=== PATIENT | female | born 1985 | race Two or more races ===

== ENCOUNTER 2019-12-04 12:49 | Outpatient (CLI) | payer OTHER | END 2019-12-04 13:49 | disposition home or self-care (01) | LOC: OFIC 805 12:49 | PROVIDERS: ATTEND Otolaryngology | DX: J30.89 Other allergic rhinitis (principal); J34.89 Other specified disorders of nose and nasal sinuses; J34.2 Deviated nasal septum; R42 Dizziness and giddiness; H61.23 Impacted cerumen, bilateral ==

== ENCOUNTER 2020-01-15 12:07 | Outpatient (CLI) | payer OTHER | END 2020-01-15 13:00 | disposition home or self-care (01) | LOC: OFIC 805 12:07 | PROVIDERS: ATTEND Otolaryngology | DX: R42 Dizziness and giddiness (principal) ==

== ENCOUNTER → 2020-03-30 | Outpatient (CLI) | payer OTHER | END | disposition home or self-care (01) | LOC: OFIC 805 12:15 | PROVIDERS: ATTEND Otolaryngology | DX: M35.89 Other specified systemic involvement of connective tissue (principal); R42 Dizziness and giddiness; H92.02 Otalgia, left ear; M62.838 Other muscle spasm ==